=== PATIENT | male | born 1975 | race Caucasian/White ===

== ENCOUNTER 2025-05-12 15:42 | Outpatient (REF) | payer OTHER, SELFPAY ==
[2025-05-12 15:59] LABS: MANUAL DIFF FLAG NO
[2025-05-12 16:43] LABS: Hematocrit 41.0 % (42.0-52.0); Hemoglobin 13.6 g/dl (14.0-18.0); Imm Gran Abs Auto 0.03 X10*3/uL (0.00-0.03); Imm Gran Pct Auto 0.5 % (0.0-0.4); Lymphocytes Absolute Auto 1.5 X10*3/uL (1.2-4.9); Mean Corpuscular HGB Conc 33.2 g/dl (31.0-36.0); Mean Corpuscular Hemoglobin 29.4 pg (27.0-33.0); Mean Corpuscular Volume 88.7 fL (80.0-98.0); NRBC Abs Auto 0.000 X10*3/uL (0.0-0.012); NRBC Pct Auto 0.0 /100WBC (0.0-0.2); Platelet Count 219 X10*3/uL (160-400); Red Blood Count 4.62 X10*6/uL (4.60-5.80); White Blood Count 6.0 X10*3/uL (4.8-10.8)
[2025-05-12 16:46] LABS: Appearance Urine Clear; Glucose Urine UA Negative (Negative); PH 5.5 (5.0-9.0); Specific Gravity - Urine 1.020 (1.005-1.025); UMIC TRIGGER UA YES
[2025-05-12 17:16] LABS: Anion Gap 11 (12-20); Blood Urea Nitrogen 48 mg/dL (9-16); Calcium 9.6 mg/dL (8.4-10.2); Carbon Dioxide 27 mmol/L (22-29); Chloride 105 mmol/L (96-108); Estimated Glomerular Filt Rate 29; Iron 52 mcg/dL (45-160); Magnesium 2.0 mg/dL (1.6-2.6); Percent Iron Saturation 23 % (15-50); Potassium 5.2 mmol/L (3.3-5.1); Sodium 138 mmol/L (135-145); Total Iron Binding Capacity 227 mcg/dL (228-428); Unsaturated Iron Binding 175 ug/dL; Uric Acid 9.4 mg/dL (3.4-7.0)
[2025-05-12 17:19] LABS: PTH Intact Intraoperative 121.8 pg/mL (8.7-77.1)
[2025-05-12 17:24] LABS: Microalbum/Creatinine Ratio Ur 7.7 ug/mg cr (<30); Total Protein Urine Random < 7 mg/dL (<12)
[2025-05-12 17:29] LABS: Ferritin 222 ng/mL (20-250)
== END 2025-05-12 15:43 | disposition home or self-care (01) ==
LOC: HO.LAB 15:42
PROVIDERS: PCP Internal Medicine; Visit Provider Internal Medicine
DX: Z13.1 Encounter for screening for diabetes mellitus (principal); Z13.0 Encounter for screening for diseases of the blood and blood-forming organs and certain disorders involving the immune mechanism; Z13.21 Encounter for screening for nutritional disorder
CPT/HCPCS: 36415; 80048; 81001; 82043; 82306; 82570; 82728; 83036; 83540; 83735; 83970; 84100; 84156; 84550; 85025